=== PATIENT | male | born 1965 | race Caucasian/White ===

== ENCOUNTER 2017-03-30 20:23 | Observation (INO) | payer BC ==
[2017-03-30] MEDS ORDERED: Sodium Chloride 0.9% 1,000 ML IV SCH (22:15)
--- NOTE | 2017-03-30 22:15 | EDM.PDOC ---
ED HPI GENERAL MEDICAL PROBLEM - General Chief Complaint: General Stated Complaint: FLUIDS Time Seen by Provider: 03/30/17 20:43 Source of Information: Reports: Patient History Limitations: Reports: No Limitations - History of Present Illness INITIAL COMMENTS - FREE TEXT/NARRATIVE: This is a 51-year-old male. Apparently he is having some rhabdomyolysis due to too strenuous workouts that he had the last 2 days. He was seen at a local clinic and apparently had a workup with a CK that was approximately 7000. He has a history of having rhabdomyolysis back in October 2016 secondary to an exhaustive and extensive workout. Apparently it was arranged for him to be a direct admit. I do not know why he was not a direct admit since I came in for my shift after all this was arranged and now I'm seeing him in the ER. The patient complains of a lot of muscle stiffness and feeling of swelling and lots of soreness with movement. He says he recognized the symptoms from the time he had rhabdomyolysis in October of this year. Patient denies any chest pain suggesting a cardiac origin. Blood work that was collected at 1551 today shows a B1 of 15 creatinine of 1.2 his CK was 6915, is a LT was 48 with a AST was 120, his white count was 8.3 with a hemoglobin of 13.2 his CK-MB fraction was 7. 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: labs upper arms Pain Score (Numeric/FACES): 3 - Related Data Allergies Allergy/AdvReac Type Severity Reaction Status Date / Time No Known Allergies Allergy Verified 03/30/17 20:47 Home Meds: Home Meds Naproxen Sodium [Aleve] 1 cap PO Q12H PRN 07/06/16 [History] Past Medical History - Past Health History Medical/Surgical History: Denies Medical/Surgical History HEENT History: Reports: Retinal Detachment Other HEENT History: X 2 one approx 2 yrs ago, oone approx 20 years ago Genitourinary History: Reports: Other (See Below) Other Genitourinary History: hx rhabdo - Past Surgical History Musculoskeletal Surgical History: Reports: Other (See Below) Social & Family History - Family History Family Medical History: Noncontributory - Tobacco Use Smoking Status *Q: Never Smoker Second Hand Smoke Exposure: No - Caffeine Use Caffeine Use: Reports: Coffee - Recreational Drug Use Recreational Drug Use: No - Living Situation & Occupation Living situation: Reports: , with Family Occupation: Employed ED ROS GENERAL - Review of Systems Review Of Systems: See Below Constitutional: Reports: Fatigue. Denies: Fever, Chills HEENT: Reports: No Symptoms Respiratory: Reports: No Symptoms Cardiovascular: Reports: No Symptoms Endocrine: Reports: No Symptoms GI/Abdominal: Denies: Nausea, Vomiting : Reports: No Symptoms Musculoskeletal: Reports: Muscle Pain, Muscle Stiffness Skin: Reports: Other (The skin feels tight over his muscles) Neurological: Reports: No Symptoms Psychiatric: Reports: No Symptoms Hematologic/Lymphatic: Reports: No Symptoms ED EXAM, GENERAL - Physical Exam Exam: See Below Exam Limited By: No Limitations General Appearance: Alert, WD/WN, No Apparent Distress Eye Exam: Bilateral Eye: Normal Inspection Ears: Normal External Exam, Normal Canal, Normal TMs Nose: Normal Inspection Throat/Mouth: Normal Inspection, Normal Lips, Normal Voice, No Airway Compromise Head: Atraumatic, Normocephalic Neck: Supple Respiratory/Chest: No Respiratory Distress, Lungs Clear Cardiovascular: Regular Rate, Rhythm, No Murmur GI/Abdominal: Soft, Non-Tender Back Exam: Full Range of Motion Extremities: Other (The upper extremities or where he is having most of his symptoms with swelling and tightness of the muscles pressure the bicep and tricep muscles his chest does not appear to be very tender his lower extremities are not tender at this time either, he does state it seems like it' s all his upper extremities and maybe his chest saw him this seems to be the tightness and feeling the fatigue and the pain) Neurological: Alert, Oriented Psychiatric: Normal Affect, Normal Mood Skin Exam: Warm, Dry Course - Vital Signs Last Recorded V/S: Last Vital Signs Temp 97.7 F 03/30/17 20:44 Pulse 98 03/30/17 20:44 Resp 18 03/30/17 20:44 BP 138/88 03/30/17 20:44 Pulse Ox 98 03/30/17 20:44 - Orders/Labs/Meds Orders: Active Orders 24 hr Category Date Time Status Sodium Chloride 0.9% [Normal Saline] 1,000 ml Med 03/30/17 22:15 Active IV ASDIRECTED Medication Orders Sodium Chloride (Normal Saline) 1,000 mls @ 1,000 mls/hr IV ASDIRECTED KEVIN Last Admin: 03/30/17 22:12 Dose: 1,000 mls/hr Labs: Laboratory Tests 03/30/17 03/30/17 03/30/17 Range/Units 22:00 22:00 22:00 WBC 7.18 (4.23-9.07) K/mm3 RBC 4.54 L (4.63-6.08) M/mm3 Hgb 13.3 L (13.7-17.5) gm/L Hct 40.3 (40.1-51.0) % MCV 88.8 (79.0-92.2) fl MCH 29.3 (25.7-32.2) pg MCHC 33.0 (32.2-35.5) g/dl RDW Std Deviation 43.4 (35.1-43.9) fL Plt Count 291 (163-337) K/mm3 MPV 9.8 (9.4-12.3) fl Neut % (Auto) 63.9 (34.0-67.9) % Lymph % (Auto) 22.8 (21.8-53.1) % [place] % (Auto) 11.0 (5.3-12.2) % Eos % (Auto) 1.9 (0.8-7.0) Baso % (Auto) 0.3 (0.1-1.2) % Neut # (Auto) 4.58 (1.78-5.38) K/mm3 Lymph # (Auto) 1.64 (1.32-3.57) K/mm3 [place] # (Auto) 0.79 (0.30-0.82) K/mm3 Eos # (Auto) 0.14 (0.04-0.54) K/mm3 Baso # (Auto) 0.02 (0.01-0.08) K/mm3 Sodium 140 (136-145) mEq/L Potassium 3.9 (3.5-5.1) mEq/L Chloride 104 (98-107) mEq/L Carbon Dioxide 30 (21-32) mEq/L Anion Gap 9.9 (5-15) BUN 14 (7-18) mg/dL Creatinine 1.3 (0.7-1.3) mg/dL Est Cr Clr Drug Dosing TNP Estimated GFR (MDRD) 59 (>60) mL/min BUN/Creatinine Ratio 10.8 L (14-18) Glucose 97 (74-106) mg/dL Calcium 9.0 (8.5-10.1) mg/dL Total Bilirubin 0.5 (0.2-1.0) mg/dL AST 172 H (15-37) U/L ALT 59 (16-63) U/L Alkaline Phosphatase 55 (46-116) U/L Creatine Kinase > 12970 H (39-308) U/L Total Protein 7.6 (6.4-8.2) g/dl Albumin 4.0 (3.4-5.0) g/dl Globulin 3.6 gm/dL Albumin/Globulin Ratio 1.1 (1-2) Urine Color Light yellow (Yellow) Urine Appearance Clear (Clear) Urine pH 6.5 (5.0-8.0) Ur Specific [place] 1.010 (1.005-1.030) Urine Protein Negative (Negative) Urine Glucose (UA) Negative (Negative) Urine Ketones Negative (Negative) Urine Occult Blood Trace-lysed H (Negative) Urine Nitrite Negative (Negative) Urine Bilirubin Negative (Negative) Urine Urobilinogen 0.2 (0.2-1.0) Ur Leukocyte Esterase Negative (Negative) Urine RBC 0-5 (0-5) /hpf Urine WBC 0-5 (0-5) /hpf Ur Epithelial Cells 0-5 (0-5) /hpf Urine Bacteria Rare (FEW) /hpf Urine Mucus Not seen (FEW) /hpf Meds: Medications Generic Name Dose Route Start Last Admin Trade Name Freq PRN Reason Stop Dose Admin Sodium Chloride 1,000 mls @ 1,000 mls/hr 03/30/17 22:15 03/30/17 22:12 Normal Saline IV 1,000 mls/hr ASDIRECTED KEVIN Administration Discontinued Medications Generic Name Dose Route Start Last Admin Trade Name Freq PRN Reason Stop Dose Admin Sodium Chloride 500 mls @ 500 mls/hr 03/30/17 23:19 03/30/17 23:25 Normal Saline IV 03/31/17 00:18 500 mls/hr .BOLUS ONE Administration - Re-Assessments/Exams Free Text/Narrative Re-Assessment/Exam: 03/31/17 01:51 The labs showed a creatinine kinase of 10,699, his BUN/creatinine is still appeared to be good. Departure - Departure Time of Disposition: 01:51 Disposition: Refer to Observation Condition: Good Clinical Impression: Rhabdomyolysis Qualifiers: Rhabdomyolysis type: traumatic Encounter type: initial encounter Qualified Code (s): T79.6XXA - Traumatic ischemia of muscle, initial encounter - Discharge Information Additional Instructions: I spoke to Dr. Colby regarding the patient and she will admit to observation for further evaluation and treatment. ED Communication - ED Communication Date/Time Date: 03/31/17 Time Called: 01:54 - Discussed Case With (1) Discussed Case With (1): Admitting Provider Person/s Notified (1): Meryl Colby (Observation) - My Orders Last 24 Hours: My Active Orders 03/30/17 22:15 Sodium Chloride 0.9% [Normal Saline] 1,000 ml IV ASDIRECTED - Assessment/Plan Last 24 Hours: My Active Orders 03/30/17 22:15 Sodium Chloride 0.9% [Normal Saline] 1,000 ml IV ASDIRECTED
[2017-03-30] MEDS ORDERED: Sodium Chloride 0.9% 500 ML IV ONE (23:19)
[2017-03-31] MEDS ORDERED: Sodium Chloride 0.9% 1,000 ML IV SCH ×3 (02:00→03:15)
[2017-03-31] MEDS ORDERED: Temazepam 15 MG Cap PO PRN (03:04)
[2017-03-31] MEDS ORDERED: Ibuprofen 600 MG Tab PO PRN (03:05)
[2017-03-31] MEDS ORDERED: Diphtheria,Pertussis(Acell),Tetanus Vaccine 0.5 ML SDV IM ONE (03:17)
[2017-03-31] MEDS: Sodium Chloride 0.9% 1,000 ML IV SCH ×2 (04:44→09:21)
--- NOTE | 2017-03-31 08:50 | PCM.HP ---
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 Exercise of choice involved UE sets including pull ups and push ups. He has had a previous episode of rhabdo after similar exercises, on that occasion, he also performed pull ups. He admits to continuing his work out despite soreness, becoming more concerned 24-48 hours before presenting to his PCP. Because he has become more aware, he scheduled an appt at the clinic much sooner. The previous episode occurred in the fall of 2015, at that time he reported that his CPK was greater than 40, 000. 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 It appears that the most recent level drawn in the ED was 10,000 however that lab value has been corrected and appears to be closer to the initial value obtained in the clinic. He will be admitted for observation with aggressive treatment for rhabdomyolysis. He had received 3 liters of crystalloid in the ED, this however was not enough to avoid an admission. Onset of Symptoms: Reports: Gradual Duration of Symptoms: Reports: Day(s):, Getting Worse Location: Reports: Upper Extremity, Left, Upper Extremity, Right Quality: Reports: Same as Previous Episode Severity: Moderate Improves with: Reports: Medication Worsens with: Reports: Movement Associated Symptoms: Reports: Weakness upper arms Pain Score (Numeric/FACES): 3 - Related Data Allergies/Adverse Reactions: Allergies Allergy/AdvReac Type Severity Reaction Status Date / Time No Known Allergies Allergy Verified 03/30/17 20:47 Home Medications: Home Meds Naproxen Sodium [Aleve] 1 cap PO Q12H PRN 07/06/16 [History] Past Medical History - Past Health History Medical/Surgical History: Denies Medical/Surgical History HEENT History: Reports: Retinal Detachment Other HEENT History: X 2 one approx 2 yrs ago, oone approx 20 years ago Genitourinary History: Reports: Other (See Below) Other Genitourinary History: hx rhabdo - Past Surgical History HEENT Surgical History: Reports: None Male Surgical History: Reports: None Social & Family History - Family History Family Medical History: Noncontributory - Tobacco Use Smoking Status *Q: Never Smoker Second Hand Smoke Exposure: No - Caffeine Use Caffeine Use: Reports: None - Alcohol Use Days Per Week of Alcohol Use: 0 - Recreational Drug Use Recreational Drug Use: No - Living Situation & Occupation Living situation: Reports: , with Family Occupation: Employed H&P Review of Systems - Review of Systems: Review Of Systems: See Below General: Reports: Fatigue HEENT: Reports: No Symptoms Pulmonary: Reports: No Symptoms Cardiovascular: Reports: No Symptoms Gastrointestinal: Reports: No Symptoms Genitourinary: Reports: No Symptoms Musculoskeletal: Reports: Muscle Pain, Muscle Stiffness Skin: Reports: No Symptoms Psychiatric: Reports: No Symptoms Neurological: Reports: No Symptoms Hematologic/Lymphatic: Reports: No Symptoms Immunologic: Reports: No Symptoms Exam - Exam Exam: See Below - Vital Signs Vital Signs: Last Vital Signs Temp 37.0 C 03/31/17 08:12 Pulse 53 L 03/31/17 08:12 Resp 16 03/31/17 08:12 BP 120/65 03/31/17 08:12 Pulse Ox 97 03/31/17 08:12 Weight: 92.941 kg - Exam Quality Assessment: DVT Prophylaxis General: Alert, Oriented, Cooperative HEENT: EOMI, Nares Patent, Normal Nasal Septum, Posterior Pharynx Clear, Pupils Equal, Pupils Reactive, TMs Clear Neck: Supple, Trachea Midline Lungs: Normal Respiratory Effort Cardiovascular: Regular Rate, Regular Rhythm GI/Abdominal Exam: Normal Bowel Sounds, Soft, Non-Tender, No Organomegaly, No Distention (Male) Exam: Deferred Rectal (Males) Exam: Deferred Back Exam: Normal Inspection Extremities: Normal Inspection, Arm Pain Skin: Warm Neurological: Cranial Nerves Intact Neuro Extensive - Mental Status: Alert, Oriented x3, Normal Mood/Affect, Normal Cognition, Memory Intact Neuro Extensive - Motor, Sensory, Reflexes: CN II-XII Intact, Normal Gait Psychiatric: Alert, Normal Affect, Normal Mood - Patient Data Lab Results Last 24 hrs: Laboratory Results - last 24 hr 03/31/17 Range/Units 05:43 Sodium 144 (136-145) mEq/L Potassium 4.2 (3.5-5.1) mEq/L Chloride 111 H (98-107) mEq/L Carbon Dioxide 24 (21-32) mEq/L Anion Gap 13.2 (5-15) BUN 14 (7-18) mg/dL Creatinine 1.1 (0.7-1.3) mg/dL Est Cr Clr Drug Dosing 89.16 mL/min Estimated GFR (MDRD) > 60 (>60) mL/min BUN/Creatinine Ratio 12.7 L (14-18) Glucose 96 (74-106) mg/dL Calcium 7.6 L (8.5-10.1) mg/dL Creatine Kinase 8160 H (39-308) U/L C-Reactive Protein < 0.2 (<1.0) mg/dL Result Diagrams: 04/01/17 06:15 04/01/17 06:15 *Q Meaningful Use (ADM) - VTE *Q VTE Criteria *Q: - Stroke *Q Stroke Criteria *Q: - AMI *Q AMI Criteria *Q: - Problem List (1) Rhabdomyolysis SNOMED Code(s): 303007053 ICD Code: M62.82 - RHABDOMYOLYSIS Status: Acute (2) Renal insufficiency SNOMED Code(s): 026912880, 153126114 ICD Code: N28.9 - DISORDER OF KIDNEY AND URETER, UNSPECIFIED Status: Acute Problem List Initiated/Reviewed/Updated: Yes Orders Last 24hrs: Active Orders 24 hr Category Date Time Status Activity as Tolerated [RC] .Routine Care 03/31/17 08:48 Ordered Antiembolic Devices [RC] BID Care 03/31/17 03:06 Active Vaccines to be Administered [RC] PER UNIT ROUTINE Care 03/31/17 03:17 Active Regular Diet [DIET] Diet 03/31/17 Breakfast Active BASIC METABOLIC PANEL,BMP [CHEM] Routine Lab 04/01/17 05:00 Ordered CBC WITH AUTO DIFF [HEME] Routine Lab 04/01/17 05:00 Ordered CPK [CREATINE KINASE,CK] [CHEM] Routine Lab 03/31/17 19:00 Ordered CPK [CREATINE KINASE,CK] [CHEM] Routine Lab 04/01/17 05:00 Ordered CRP [C-REACTIVE PROTEIN] [CHEM] Routine Lab 04/01/17 05:00 Ordered Ibuprofen [Motrin] Med 03/31/17 03:05 Active 600 mg PO Q6H PRN Sodium Chloride 0.9% [Normal Saline] 1,000 ml Med 03/31/17 03:15 Active IV ASDIRECTED Temazepam [Restoril] Med 03/31/17 03:04 Active 15 mg PO BEDTIME PRN Antiembolic Hose [OM.PC] Routine Oth 03/31/17 03:06 Ordered Resuscitation Status Routine Resus Stat 03/31/17 03:10 Ordered Medication Orders Sodium Chloride (Normal Saline) 1,000 mls @ 200 mls/hr IV ASDIRECTED KEVIN Last Admin: 03/31/17 04:44 Dose: 200 mls/hr Ibuprofen (Motrin) 600 mg PO Q6H PRN PRN Reason: Pain/Fever Temazepam (Restoril) 15 mg PO BEDTIME PRN PRN Reason: Sleep Assessment/Plan Comment:: Impression: Rhabdomyolysis after extreme exertion of isolated muscle groups ( UE) Dehydration Mild PAOLA without profound hematuria Plan: Aggressive hydration to exceed UO>100/ hr Daily labs Analgesics as needed. DVT/GI prophylaxis
[2017-03-31] MEDS: Sodium Chloride 0.45% 1,000 ML IV SCH ×5 (11:10→22:23)
[2017-03-31] MEDS ORDERED: traMADol 50 MG Tab PO PRN (15:32)
[2017-03-31] MEDS ORDERED: Acetaminophen 325 MG Tab PO PRN (15:32)
[2017-04-01] MEDS: Sodium Chloride 0.45% 1,000 ML IV SCH ×5 (02:12→12:03)
[2017-04-01 08:29] VITALS: BP 122/71
[2017-04-01] MEDS ORDERED: Diphtheria,Pertussis(Acell),Tetanus Vaccine 0.5 ML SDV IM ONE (11:15)
--- NOTE | 2017-04-01 11:56 | PCM.DCSUM1 ---
Discharge Summary - Hospital Course Free Text/Narrative:: 51 year old male who had no significant hematuria, mild dehydration. Received aggressive fluid resuscitation for rhabdomyolysis. His urine out put was 100- 200 cc/hr. He received 6 liters of fluid in 8 hours on initial presentation, this includes 3 liters given in the ED, this however was not enough to avoid admission. He had no significant discomfort during admission, and declined analgesics. He was discharged in less than 24 hours after admission, and was given the option to stay longer. The CPK peaked at ~10, 000 this was drawn at 1900 on 03/31/17 cf to ~7000 on 04/01/17 at 0500. Prior to DC, he received an additional 3 liters. He is aware of the importance of adequate hydration, a discussion about more variable sets to avoid extreme isolation of his UE muscle groups also took place. He has no restrictions at work. Primary Dx PAOLA Rhabdomyolysis Follow up 1 week with PCP, Dr Forrester or his colleague Lab studies pre appt BMP CPK Activity As tolerated Diet Regular - Discharge Data Discharge Date: 04/01/17 Discharge Disposition: Home, Self-Care 01 Condition: Good - Discharge Diagnosis/Problem(s) (1) Rhabdomyolysis SNOMED Code(s): 185440978 ICD Code: M62.82 - RHABDOMYOLYSIS Status: Acute (2) Renal insufficiency SNOMED Code(s): 874647424, 795785628 ICD Code: N28.9 - DISORDER OF KIDNEY AND URETER, UNSPECIFIED Status: Acute - Patient Instructions Diet: Usual Diet as Tolerated (drink 2 liters of fluid as tolerated with heavy exertion) Activity: As Tolerated Driving: May Drive Today Showering/Bathing: May Shower Notify Provider of: Increased Pain - Discharge Plan Home Medications: Home Meds Naproxen Sodium [Aleve] 1 cap PO Q12H PRN 07/06/16 [History] Referrals: Braulio Briseno MD [Primary Care Provider] - (Please call clinic tomorrow and make an appointment with for follow-up in 1 week.) - Discharge Summary/Plan Comment DC Time >30 min.: No - General Info Date of Service: 03/31/17 Functional Status: Reports: Tolerating Diet, Ambulating, Urinating - Review of Systems General: Reports: No Symptoms HEENT: Reports: No Symptoms Pulmonary: Reports: No Symptoms Cardiovascular: Reports: No Symptoms Gastrointestinal: Reports: No Symptoms Genitourinary: Reports: No Symptoms Musculoskeletal: Reports: No Symptoms Skin: Reports: No Symptoms Neurological: Reports: No Symptoms Psychiatric: Reports: No Symptoms - Patient Data Vitals - Most Recent: Last Vital Signs Temp 36.7 C 04/01/17 08:15 Pulse 53 L 04/01/17 08:15 Resp 20 04/01/17 08:15 BP 122/71 04/01/17 08:15 Pulse Ox 99 04/01/17 08:15 Weight - Most Recent: 93.848 kg I&O - Last 24 hours: Intake & Output 03/31/17 04/01/17 04/01/17 22:59 06:59 14:59 Intake Total 3735 3678 240 Output Total 3151 1275 2925 Balance 585 2403 -7685 Lab Results - Last 24 hrs: Laboratory Results - last 24 hr 03/31/17 04/01/17 04/01/17 Range/Units 19:08 06:15 06:15 WBC 7.31 (4.23-9.07) K/mm3 RBC 4.15 L (4.63-6.08) M/mm3 Hgb 12.0 L (13.7-17.5) gm/L Hct 37.5 L (40.1-51.0) % MCV 90.4 (79.0-92.2) fl MCH 28.9 (25.7-32.2) pg MCHC 32.0 L (32.2-35.5) g/dl RDW Std Deviation 44.2 H (35.1-43.9) fL Plt Count 248 (163-337) K/mm3 MPV 9.9 (9.4-12.3) fl Neut % (Auto) 69.9 H (34.0-67.9) % Lymph % (Auto) 17.6 L (21.8-53.1) % [place] % (Auto) 9.6 (5.3-12.2) % Eos % (Auto) 2.5 (0.8-7.0) Baso % (Auto) 0.1 (0.1-1.2) % Neut # (Auto) 5.11 (1.78-5.38) K/mm3 Lymph # (Auto) 1.29 L (1.32-3.57) K/mm3 [place] # (Auto) 0.70 (0.30-0.82) K/mm3 Eos # (Auto) 0.18 (0.04-0.54) K/mm3 Baso # (Auto) 0.01 (0.01-0.08) K/mm3 Sodium 140 (136-145) mEq/L Potassium 4.2 (3.5-5.1) mEq/L Chloride 108 H (98-107) mEq/L Carbon Dioxide 26 (21-32) mEq/L Anion Gap 10.2 (5-15) BUN 12 (7-18) mg/dL Creatinine 1.1 (0.7-1.3) mg/dL Est Cr Clr Drug Dosing 89.16 mL/min Estimated GFR (MDRD) > 60 (>60) mL/min BUN/Creatinine Ratio 10.9 L (14-18) Glucose 102 (74-106) mg/dL Calcium 8.3 L (8.5-10.1) mg/dL Creatine Kinase 41411 H 7569 H (39-308) U/L C-Reactive Protein < 0.2 (<1.0) mg/dL Med Orders - Current: Current Medications Acetaminophen (Tylenol) 650 mg PO Q6H PRN PRN Reason: Pain (moderate 4-6) Sodium Chloride (Sodium Chloride 0.45%) 1,000 mls @ 999 mls/hr IV ASDIRECTED [facility] Stop: 04/03/17 10:31 Last Admin: 04/01/17 10:59 Dose: 999 mls/hr Temazepam (Restoril) 15 mg PO BEDTIME PRN PRN Reason: Sleep Tramadol HCl (Ultram) 50 mg PO Q8H PRN PRN Reason: Pain (moderate 4-6) Discontinued Medications Diphtheria/Tetanus/Acell Pertussis (Adacel) 0.5 ml IM .ONCE ONE Stop: 03/31/17 03:18 Diphtheria/Tetanus/Acell Pertussis (Adacel) 0.5 ml IM .ONCE ONE Stop: 04/01/17 11:16 Last Admin: 04/01/17 11:27 Dose: 0.5 ml Sodium Chloride (Normal Saline) 1,000 mls @ 1,000 mls/hr IV ASDIRECTED [facility] Last Admin: 03/30/17 22:12 Dose: 1,000 mls/hr Sodium Chloride (Normal Saline) 500 mls @ 500 mls/hr IV .BOLUS ONE Stop: 03/31/17 00:18 Last Admin: 03/30/17 23:25 Dose: 500 mls/hr Sodium Chloride (Normal Saline) 1,000 mls @ 250 mls/hr IV ASDIRECTED [facility] Last Admin: 03/31/17 01:55 Dose: 250 mls/hr Sodium Chloride (Normal Saline) 1,000 mls @ 999 mls/hr IV ASDIRECTED [facility] Stop: 04/01/17 04:01 Last Admin: 03/31/17 03:40 Dose: 999 mls/hr Sodium Chloride (Normal Saline) 1,000 mls @ 200 mls/hr IV ASDIRECTED [facility] Last Admin: 03/31/17 09:21 Dose: 200 mls/hr Sodium Chloride (Sodium Chloride 0.45%) 1,000 mls @ 250 mls/hr IV ASDIRECTED [facility] Last Admin: 04/01/17 06:08 Dose: 250 mls/hr Sodium Chloride (Sodium Chloride 0.45%) 3,000 mls @ 999 mls/hr IV ASDIRECTED [facility] Stop: 04/02/17 14:01 Last Admin: 03/31/17 13:00 Dose: 999 mls/hr Ibuprofen (Motrin) 600 mg PO Q6H PRN PRN Reason: Pain/Fever - Exam Quality Assessment: Reports: DVT Prophylaxis General: Reports: Alert, Oriented, Cooperative, No Acute Distress HEENT: Reports: Pupils Equal, Pupils Reactive, EOMI Neck: Reports: Supple, Trachea Midline, No JVD Lungs: Reports: Clear to Auscultation, Normal Respiratory Effort Cardiovascular: Reports: Regular Rate, Regular Rhythm GI/Abdominal Exam: Normal Bowel Sounds, Soft, Non-Tender, No Organomegaly, No Distention (Male) Exam: Deferred Rectal (Males) Exam: Deferred Back Exam: Reports: Normal Inspection, Full Range of Motion Extremities: Normal Inspection, Normal Range of Motion, Non-Tender, No Pedal Edema, Normal Capillary Refill Skin: Reports: Warm, Dry, Intact Neurological: Reports: No New Focal Deficit, Normal Gait, Normal Speech Psy/Mental Status: Reports: Alert, Normal Affect, Normal Mood *Q Meaningful Use (DIS) - VTE *Q VTE Criteria *Q: - Stroke *Q Stroke Criteria *Q: - AMI *Q AMI Criteria *Q:
== END 2017-04-01 13:18 | disposition home or self-care (01) ==
LOC: JD.ED 20:23 → JD.MS 03-31 02:40
PROVIDERS: ADMIT Internal Medicine Cardiovascular Disease; ATTEND Internal Medicine Cardiovascular Disease
DX: M62.82 Rhabdomyolysis (principal); N17.9 Acute kidney failure, unspecified; E86.0 Dehydration; H33.20 Serous retinal detachment, unspecified eye; M79.1 Myalgia
CPT/HCPCS: 36415; 80048; 80053; 81001; 82550; 82553; 83874; 85025; 85027; 86140; 90471; 90715; 96360; 96361; 99285; G0378; J7030; J7040; 99284

== ENCOUNTER 2017-11-12 07:05 | Day surgery (SDC) | payer BC ==
[~2017-11-12 07:05] MED LIST: Lactated Ringers 1,000 ML IV SCH; Lidocaine 1%/Sod Bicarbonate in NS 8.4% 1 ML Syringe IDERM PRN; Sodium Chloride 0.9% 10 ML Syringe FLUSH PRN
[2017-11-12] MEDS ORDERED: Bupivacaine 0.25% 30 ML SDV ONE (07:16)
[2017-11-12] MEDS ORDERED: Lactated Ringers 1,000 ML ONE (07:21)
[2017-11-12] MEDS ORDERED: Ondansetron 4 MG/2 ML SDV ONE (07:21)
[2017-11-12] MEDS ORDERED: Propofol 200 MG/20 ML SDV ONE (07:21)
[2017-11-12] MEDS ORDERED: ceFAZolin 1 GM Vial ONE (07:21)
[2017-11-12] MEDS ORDERED: Midazolam 1 MG/ML 2 ML SDV ONE (07:21)
[2017-11-12] MEDS ORDERED: fentaNYL 100 MCG/2 ML SDV ONE (07:21)
[2017-11-12] MEDS ORDERED: Lidocaine 1% 4 ML ONE (07:21)
[2017-11-12] MEDS ORDERED: Dexamethasone 4 MG/ML 5 ML MDV ONE (07:21)
[2017-11-12] MEDS ORDERED: Ketorolac 30 MG/ML SDV ONE (07:21)
--- NOTE | 2017-11-12 07:37 | PCM.PREANE ---
Preanesthetic Assessment - Anesthesia/Transfusion/Family Hx Anesthesia History: Prior Anesthesia Without Reaction Family History of Anesthesia Reaction: No Transfusion History: No Prior Transfusion(s) - Review of Systems General: No Symptoms Pulmonary: No Symptoms Cardiovascular: No Symptoms Gastrointestinal: No Symptoms Neurological: No Symptoms Other: Reports: None - Physical Assessment NPO Status Date: 11/11/17 NPO Status Time: 23:00 Pulse: 70 O2 Sat by Pulse Oximetry: 96 Respiratory Rate: 16 Blood Pressure: 121/85 Temperature: 36.6 C Weight: 90.8 kg ASA Class: 2 Mental Status: Alert & Oriented x3 Airway Class: Mallampati = 2 Dentition: Reports: Normal Dentition Thyro-Mental Finger Breadths: 3 Mouth Opening Finger Breadths: 3 ROM/Head Extension: Full Lungs: Clear to Auscultation, Normal Respiratory Effort Cardiovascular: Regular Rate, Regular Rhythm - Lab Values: Laboratory Last Values MRSA (PCR) Negative 11/06/17 08:34 - Allergies Allergies/Adverse Reactions: Allergies Allergy/AdvReac Type Severity Reaction Status Date / Time No Known Allergies Allergy Verified 11/09/17 15:03 - Acknowledgements Anesthesia Type Planned: General Anesthesia Pt an Appropriate Candidate for the Planned Anesthesia: Yes Alternatives and Risks of Anesthesia Discussed w Pt/Guardian: Yes Pt/Guardian Understands and Agrees with Anesthesia Plan: Yes Additional Comments: 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 He denies taking supplements. Resolved both times with hydration. Cleared for surgery by his regular physician , Dr. Forrester. PreAnesthesia Questionnaire - Past Health History Medical/Surgical History: Denies Medical/Surgical History HEENT History: Reports: Impaired Vision, Retinal Detachment Other HEENT History: X 2 one approx 2 yrs ago, oone approx 20 years ago Cardiovascular History: Reports: None Respiratory History: Reports: None Gastrointestinal History: Reports: Colon Polyp Genitourinary History: Reports: None [employer] WORK[employer] History: Reports: None Musculoskeletal History: Reports: Other (See Below) Other Musculoskeletal History: left knee pain, rhabdomylosis Psychiatric History: Reports: None Endocrine/Metabolic History: Reports: None Hematologic History: Reports: None Immunologic History: Reports: None Oncologic (Cancer) History: Reports: None Dermatologic History: Reports: None - Past Surgical History Head Surgeries/Procedures: Reports: None HEENT Surgical History: Reports: None Cardiovascular Surgical History: Reports: None Respiratory Surgical History: Reports: None GI Surgical History: Reports: Colonoscopy Male Surgical History: Reports: None Endocrine Surgical History: Reports: None Neurological Surgical History: Reports: Other (See Below) Other Neurological Surgeries/Procedures: herniated disc repair Musculoskeletal Surgical History: Reports: Other (See Below) Other Musculoskeletal Surgeries/Procedures:: Herniated disc to back with surgery approx 10 years ago Dermatological Surgical History: Reports: None - SUBSTANCE USE Smoking Status *Q: Never Smoker Second Hand Smoke Exposure: No Days Per Week of Alcohol Use: 0 Recreational Drug Use History: No - HOME MEDS Home Medications: Home Meds Acetaminophen/HYDROcodone [[place] 325-5 MG] 1 - 2 tab PO Q6H PRN #30 tablet 11/12 [Rx] Aspirin 325 mg PO BID #84 tab 11/12/17 [Rx] - CURRENT (IN HOUSE) MEDS Current Meds: Current Medications Epinephrine HCl (Adrenalin) 3 mg .XX ONETIME ONE Stop: 11/12/17 08:31 Lactated Ringer's (Ringers, Lactated) 1,000 mls @ 125 mls/hr IV ASDIRECTED KEVIN Stop: 11/12/17 23:00 Lidocaine/Sodium Bicarbonate (Buffered Lidocaine 1% In Ns 8.4%) 0.25 ml IDERM ONETIME PRN PRN Reason: Prior to IV Start Stop: 11/12/17 18:00 Sodium Chloride (Saline Flush) 10 ml FLUSH ASDIRECTED PRN PRN Reason: Keep Vein Open Stop: 11/12/17 18:00 Discontinued Medications Bupivacaine HCl (Marcaine 0.25%) Confirm Administered Dose 30 ml .ROUTE .STK- MED ONE Stop: 11/12/17 07:17 Cefazolin Sodium (Ancef) Confirm Administered Dose 2 gm .ROUTE .STK-MED ONE Stop: 11/12/17 07:22 Dexamethasone (Dexamethasone) Confirm Administered Dose 20 mg .ROUTE .STK-MED ONE Stop: 11/12/17 07:22 Fentanyl (Sublimaze) Confirm Administered Dose 100 mcg .ROUTE .STK-MED ONE Stop: 11/12/17 07:22 Lactated Ringer's (Ringers, Lactated) Confirm Administered Dose 1,000 mls @ as directed .ROUTE .STK-MED ONE Stop: 11/12/17 07:22 Lidocaine HCl (Xylocaine-Mpf 1%) Confirm Administered Dose 4 mls @ as directed .ROUTE .STK-MED ONE Stop: 11/12/17 07:22 Ketorolac Tromethamine (Toradol) Confirm Administered Dose 30 mg .ROUTE .STK- MED ONE Stop: 11/12/17 07:22 Midazolam HCl (Versed 1 Mg/Ml) Confirm Administered Dose 2 mg .ROUTE .STK-MED ONE Stop: 11/12/17 07:22 Ondansetron HCl (Zofran) Confirm Administered Dose 4 mg .ROUTE .STK-MED ONE Stop: 11/12/17 07:22 Propofol (Diprivan 20 Ml) Confirm Administered Dose 400 mg .ROUTE .STK-MED ONE Stop: 11/12/17 07:22
[2017-11-12] MEDS ORDERED: EPINEPHrine 1 MG/ML 30 ML MDV ONE (08:30)
[2017-11-12] MEDS ORDERED: HYDROmorphone 1 MG/ML Syringe ONE (08:42)
[2017-11-12] MEDS ORDERED: fentaNYL 100 MCG/2 ML SDV IVPUSH PRN (09:05)
[2017-11-12] MEDS ORDERED: HYDROmorphone 0.5 MG/0.5 ML Syringe IVPUSH PRN (09:05)
[2017-11-12] MEDS ORDERED: Haloperidol Lactate 5 MG/ML SDV IVPUSH PRN (09:05)
[2017-11-12] MEDS ORDERED: diphenhydrAMINE 50 MG/ML SDV ONE (09:20)
--- NOTE | 2017-11-12 09:30 | PCM.POSTAN ---
POST ANESTHESIA ASSESSMENT - MENTAL STATUS Mental Status: Somnolent - VITAL SIGNS Pulse Rate: 77 SaO2: 95 Resp Rate: 12 Blood Pressure: 100/63 Temperature: 37.0 C - RESPIRATORY Respiratory Status: Respiratory Rate WNL, Airway Patent, O2 Saturation Stable, Supplemental Oxygen - CARDIOVASCULAR CV Status: Pulse Rate WNL, Blood Pressure Stable - GASTROINTESTINAL GI Status: No Symptoms - PAIN Pain Score: 0 - POST OP HYDRATION Hydration Status: Adequate & Stable
--- NOTE | 2017-11-12 11:37 | PCM48HPAN ---
Post Anesthesia Note - EVALUATION WITHIN 48HRS OF ANESTHETIC Vital Signs in Normal Range: Yes Patient Participated in Evaluation: Yes Respiratory Function Stable: Yes Airway Patent: Yes Cardiovascular Function Stable: Yes Hydration Status Stable: Yes Pain Control Satisfactory: Yes Nausea and Vomiting Control Satisfactory: Yes Mental Status Recovered: Yes
[2017-11-12 12:02] VITALS: BP 115/86
--- NOTE | 2017-11-22 22:04 | PCM.OPNOTE ---
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
--- NOTE | 2017-11-23 12:39 | OR ---
DATE OF OPERATION: 11/12/2017 SURGEON: Eloy June MD OPERATION PERFORMED: Left knee video arthroscopy with partial medial meniscectomy. Chondroplasty of the patella and medial femoral condyle. PREOPERATIVE DIAGNOSIS: Left knee medial meniscus tear with chondromalacia. POSTOPERATIVE DIAGNOSIS: Left knee medial meniscus tear with chondromalacia. ANESTHESIA: General LMA with local. ANESTHESIA PROVIDER: Gabi Washington CRNA [employer] NURSERY: Jacqui Cintron ESTIMATED BLOOD LOSS: 5 mL. COMPLICATIONS: None. CONDITION: Stable. DESCRIPTION OF PROCEDURE: The patient was identified in the preoperative holding area. Proper site was marked and identified by the surgeon. The patient was taken to the operating theater, where after adequate anesthesia, the patient's right lower extremity was placed in a well leg saucedo. The left lower extremity had a nonsterile tourniquet applied and then was placed in a C-clamp saucedo. The foot of the bed was then lowered and the left lower extremity was sterilely prepped and draped in the usual sterile fashion. OR time-out was performed. The patient received 2 g of IV Ancef. At this time, the left lower extremity was exsanguinated. Tourniquet was insufflated to 250 mmHg. Standard anterior lateral portal incision was made and the scope trocar was introduced. The patient's patellofemoral joint showed significant grade 3/4 chondromalacia noted throughout the patellofemoral joint. There were no loose or foreign bodies in the suprapatellar pouch. There were no loose or foreign bodies in the mediolateral gutter. Attention was turned to the medial compartment. At this time, with the use of a spinal needle, anterior medial portal was created. Probe was introduced. The patient was noted to have significant degenerative tear that was unstable to the posterior third of the medial meniscus that was irreparable. At this time, partial medial meniscectomy of the posterior third of the medial meniscus back to the capsule was undertaken and it was taken back to a stable rim. The patient was noted to have grade 2 chondromalacia changes of the medial compartment at this time as well and a chondroplasty was performed of both the patella and the medial femoral condyle at this time. The ACL was intact in the notch. The lateral compartment showed no signs of chondromalacia. At this time excess saline was drained from the knee. A 3-0 nylon simple suture was used for closure of the skin. The patient had a sterile soft dressing applied and sent to PACU in stable condition. MAHNAZ /[id number] MTDD
== END 2017-11-12 11:50 | disposition home or self-care (01) ==
LOC: JD.SDS 07:05
PROVIDERS: ATTEND Orthopaedic Surgery
DX: M23.232 Derangement of other medial meniscus due to old tear or injury, left knee (principal); M94.262 Chondromalacia, left knee
CPT/HCPCS: 29881; 36415; 80053; 85025; 87641; J0171; J0690; J1100; J1170; J1200; J2250; J2405; J3010; J3490; J7120; 01400; J1885; J2704

== ENCOUNTER 2025-01-22 08:50 | Day surgery (SDC) | payer BC ==
[~2025-01-22 08:50] MED LIST changes: -Lactated Ringers 1,000 ML IV SCH; -Lidocaine 1%/Sod Bicarbonate in NS 8.4% 1 ML Syringe IDERM PRN; +Sodium Chloride 0.9% 10 ML Syringe FLUSH SCH
[2025-01-22] MEDS: Lactated Ringers 1,000 ML IV SCH (09:00)
[2025-01-22] MEDS ORDERED: Dexamethasone 4 MG/ML 5 ML MDV ONE (09:29)
[2025-01-22] MEDS ORDERED: dexmedeTOMIDine HCl 200 MCG/2 ML SDV ONE (09:31)
[2025-01-22] MEDS ORDERED: ceFAZolin 2 GM Vial ONE (09:56)
[2025-01-22] MEDS ORDERED: Sugammadex Sodium 200 MG/2 ML VIAL IV ONE (10:05)
[2025-01-22] MEDS ORDERED: Rocuronium 50 MG/5 ML Vial ONE (10:08)
[2025-01-22] MEDS ORDERED: fentaNYL 250 MCG/5 ML SDV ONE (10:08)
[2025-01-22] MEDS ORDERED: Ondansetron 4 MG/2 ML SDV ONE ×2 (10:08→10:24)
[2025-01-22] MEDS ORDERED: propofoL 500 MG/50 ML 50 ML ONE (10:08)
[2025-01-22] MEDS ORDERED: Midazolam 1 MG/ML 2 ML SDV ONE (10:08)
[2025-01-22] MEDS ORDERED: Lidocaine 1% 5 ML VIAL ONE (10:08)
[2025-01-22] MEDS: EPINEPHrine 1 MG/ML SDV ONE (11:01)
[2025-01-22] MEDS: Bupivacaine 0.5% 30 ML SDV ONE (11:01)
[2025-01-22] MEDS ORDERED: oxyCODONE 5 MG Tab PO PRN (12:11)
[2025-01-22 13:23] VITALS: BP 106/69; PULSE 63
== END 2025-01-22 13:15 | disposition home or self-care (01) ==
LOC: JD.SDS 08:50
PROVIDERS: ATTEND Surgery
DX: K40.90 Unilateral inguinal hernia, without obstruction or gangrene, not specified as recurrent (principal); K21.9 Gastro-esophageal reflux disease without esophagitis; Z79.899 Other long term (current) drug therapy
CPT/HCPCS: 49505; J0171; J0665; J0690; J1100; J2003; J2250; J2405; J2704; J3010; J7120; J3490